=== PATIENT | female | born 1965 | race Caucasian/White ===

== ENCOUNTER 2023-02-17 16:45 | Emergency (ER) | payer OTHER ==
[2023-02-17 16:53] VITALS: BP 110/52
--- NOTE | 2023-02-17 17:40 | ED Physician Documentation ---
PD HPI OPHTHO - Stated complaint Stated Complaint: LT EYE DARK SPOT - Chief complaint Chief Complaint: Heent - History obtained from History obtained from: Patient - History of Present Illness Timing - onset: Today, How many weeks ago (1) Timing - duration: Weeks (1) Timing - details: Gradual onset Pain level max: 0 Pain level now: 0 Location: Left Associated symptoms: No: Redness, Swelling, Tearing, Discharge, Matting, FB sensation, Photophobia, Double vision, Decreased vision, Loss of vision, Headache Contributing factors: Wears glasses. 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 She states it has been there for the past 1 week. This. Nothing makes it better or worse. The right eye is normal. No headache. No speech difficulties. No double vision or blurred vision. Denies any trauma. Denies any history of eye issues in the past other than glasses. 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 : None HEENT: None Psych: None Musculoskeletal: None Derm: None - Past Surgical History Past Surgical History: Yes - Present Medications Home Medications: Ambulatory Orders Medication Instructions Recorded Confirmed Simvastatin [Zocor] 30 mg ORAL DAILY 02/17/23 02/17/23 - Allergies Allergies/Adverse Reactions: Allergies Allergy/AdvReac Type Severity Reaction Status Date / Time No Known Drug Allergies Allergy Verified 02/17/23 16:47 - Social History Does the pt smoke?: No Smoking Status: Never smoker Does the pt drink ETOH?: Yes Does the pt have substance abuse?: No - Immunizations Immunizations are current?: Yes PD ED PE NORMAL - Vitals Vital signs reviewed: Yes - General General: Alert and oriented X 3, No acute distress, Well developed/nourished - HEENT HEENT: PERRL, EOMI, Moist mucous membranes, Other (normal fundoscopic exam B. Mildly elevated intraocular pressures 27 in the right eye and 24 in the left eye. normal ocular US) - Neck Neck: Supple, no meningeal sign, No bony TTP - Cardiac Cardiac: RRR, Strong equal pulses - Respiratory Respiratory: No respiratory distress, Clear bilaterally - Abdomen Abdomen: Soft, Non tender, Non distended - Derm Derm: Warm and dry - Neuro Neuro: Alert and oriented X 3, river rat 2-12 intact, No motor deficit, No sensory deficit, Normal speech Eye Opening: Spontaneous Motor: Obeys Commands Verbal: Oriented GCS Score: 15 - Psych Psych: Normal mood, Normal affect - Free text exam Free text exam: NIHSS 0 Results - Vitals Vitals: Vital Signs - 24 hr 02/17/23 16:49 Temperature 36.6 C Heart Rate 79 Respiratory 16 Rate Blood Pressure 110/52 L O2 Saturation 99 Oxygen O2 Source Room air PD Medical Decision Making - ED course Complexity details: considered differential, d/w patient ED course: Patient with a small matta spot in the left eye for the past 1 week. Normal examination here. Mildly elevated intraocular pressures. Recommend that she follow-up closely with an oceanography professor for further evaluation. No indication for emergent neuroimaging. No evidence of stroke or central deficit. We will start her on aspirin daily. No trauma. Normal examination of the eye. Patient counseled regarding signs and symptoms for which I believe and urgent re- evaluation would be necessary. Patient with good understanding of and agreement to plan and is comfortable going home at this time This document was made in part using voice recognition software. While efforts are made to proofread this document, sound alike and grammatical errors may occur. Departure - Departure Disposition: 01 Home, Self Care Clinical Impression: Vision changes Condition: Good Instructions: ED Blurred Vision Follow-Up: Dex Quintana MD [Provider Admit Priv/Credential] - KRISTY SELLERS MD [Physician No Access] - Comments: It is important that you follow-up with ophthalmology for a full exam. Your exam here does not show any significant abnormalities, your pressure in your eyes may be mildly elevated. I would recommend starting on a baby aspirin daily and contacting [facility] tomorrow for an ophthalmology appointment this week to evaluate your vision and your retina Discharge Date/Time: 02/17/23 17:46
== END 2023-02-17 17:46 | disposition home or self-care (01) ==
LOC: ED 16:45
DX: H53.8 Other visual disturbances (principal)
CPT/HCPCS: 99281; 99282